=== PATIENT | female | born 1990 | race Caucasian/White ===

== ENCOUNTER 2017-05-08 12:43 | Emergency (ER) | payer OTHER ==
[~2017-05-08] VITALS: Ht 162.6 cm; Wt 89.0 kg
[~2017-05-08 12:43] MED LIST: IBUP400T22 PO
[2017-05-08 13:00] VITALS: Ht 162.6 cm; Wt 89.0 kg
--- NOTE | 2017-05-08 14:27 | ERD ---
ER Documentation Chief Complaint Date/Time DATE: 05/08/17 TIME: 14:22 Chief Complaint bee sting yesterday, today on and off sob said, speaking in full sentences HPI This 26-year-old female was stung in the right anterior calf area yesterday. She has some redness surrounding the site and some pain when she moves her leg. Also she is noted that she has been on and off short of breath. She is not short of breath right now. She has not noticed any wheezing. She was stung by a bee a couple years ago as well and had some swelling at the site. She has had no fever or chills. She has no history of asthma. ROS All systems reviewed and are negative except as per history of present illness. Medications Home Meds Active Scripts Ibuprofen* (Motrin*) 400 Mg Tab, 400 MG PO Q6, #30 TAB 0 Refills Prov:TAMEKA KOWALSKI PA-C 03/22/16 Allergies Allergies: Coded Allergies: No Known Allergy (Verified Allergy, Unknown, 01/29/07) PMhx/Soc Medical and Surgical Hx: pt denies Surgical Hx History of Surgery: No Anesthesia Reaction: No Hx Neurological Disorder: No Hx Respiratory Disorders: No Hx Cardiac Disorders: No Hx Psychiatric Problems: No Hx Miscellaneous Medical Probl: No Hx Alcohol Use: No Hx Substance Use: No Hx Tobacco Use: No Smoking Status: Never smoker Physical Exam Vitals Vital Signs Date Time Temp Pulse Resp B/P Pulse Ox O2 Delivery O2 Flow Rate FiO2 05/08/17 13:00 98.1 84 18 122/74 99 Physical Exam Const: [] No distress Eyes: Normal Conjunctiva ENT: Normal External Ears, Nose and Mouth. Neck: Full range of motion..~ No meningismus. Resp: Clear to auscultation bilaterally Cardio: Regular rate and rhythm, no murmurs Ext: No cyanosis, or edema. Erythema with surrounding calor around a very tiny raised area in the right upper anterior leg approximately 6 cm below the knee. Surrounding erythema is approximately a 5 cm radius Results 24 hrs Current Medications Medications (Trade) Dose Ordered Sig/Francisco Route PRN Reason Start Time Stop Time Status Last Admin Dose Admin Prednisone (Prednisone) 60 mg ONCE ONCE PO 05/08/17 14:30 05/08/17 14:31 05/08/17 14:16 Famotidine (Pepcid) 20 mg ONCE ONCE PO 05/08/17 14:30 05/08/17 14:31 05/08/17 14:16 Procedures/MDM 26-year-old female with bee sting. This is her second sting and she may become sensitized to it. I hear no wheezing she has no respiratory issues right now. They believe she needs to be treated as if this was a serious resolving allergic reaction. I also have a concern for cellulitis at the puncture site. Going to discharge her with Keflex as well as Benadryl and prednisone. She was given prednisone pill in the emergency room. She is currently driving some I can give her Benadryl. She was also given 20 mg Pepcid. Primary care follow- up in the next 2-3 days and return precautions to the ER for any spreading infection or return of shortness of breath. Departure Diagnosis: Primary Impression: Bee sting Additional Impression: Cellulitis Condition: Stable PHUONG HAMMOND DO May 08, 2017 14:27
[2017-05-08] MEDS ORDERED: predniSONE 20 MG TAB PO ONE (14:30)
[2017-05-08] MEDS ORDERED: FAMOTIDINE 20 MG TAB PO ONE (14:30)
[2017-05-08] MEDS ORDERED: PRED20TA PO (14:31)
[2017-05-08] MEDS ORDERED: ALBU18HF INHALATION (14:31)
[2017-05-08] MEDS ORDERED: BEN25 PO (14:31)
== END 2017-05-08 16:00 | disposition home or self-care (01) ==
LOC: FTE 12:43
DX: T63.441A Toxic effect of venom of bees, accidental (unintentional), initial encounter (principal); L03.115 Cellulitis of right lower limb
CPT/HCPCS: J7512; Z7502; Z7610; 99284

== ENCOUNTER 2018-06-29 22:56 | Emergency (ER) | END 2018-06-30 01:31 | disposition home or self-care (01) ==

== ENCOUNTER 2019-06-19 20:23 | Emergency (ER) | payer MEDICAID, OTHER ==
[~2019-06-19] VITALS: Ht 170.2 cm; Wt 91.5 kg
[~2019-06-19 20:23] MED LIST changes: +ALBU18HF INHALATION; +BEN25 PO; +BUTA1CAP38 PO; +HYDR-4011 PO; +IBUP-1542 PO; +IBUP-1561 PO; -IBUP400T22 PO; +ONDA4TAB14 PO; +PRED20TA PO
[2019-06-19 20:28] VITALS: Ht 170.2 cm; Wt 91.5 kg
[2019-06-19] MEDS ORDERED: KETOROLAC 30 MG INJ IV STA (21:05)
[2019-06-19] MEDS ORDERED: METOCLOPRAMIDE 10 MG INJ IV STA (21:05)
--- NOTE | 2019-06-19 21:15 | ERD ---
ER Documentation Chief Complaint Chief Complaint dizzy & L sided SINHA x 2 days; on her period now HPI 28-year-old female with no reported past medical surgical history presents with complaint of headache and dizziness. Patient is has a history of chronic headache. States symptoms been ongoing over the past 2 days with associated pressure behind left eye. She otherwise denies photophobia, neck stiffness, recent fall or injury, chest pain, ear pain, URI type symptoms. Patient has not taken any medications for her symptoms. ROS All systems reviewed and are negative except as per history of present illness. Medications Home Meds Active Scripts Ibuprofen* (Motrin*) 600 Mg Tab, 600 MG PO Q6, #30 TAB Prov:DOMINGUEZ GALAN-C 06/19/19 Ondansetron (Ondansetron Odt) 4 Mg Tab.rapdis, 4 MG PO Q6H PRN for NAUSEA AND/OR VOMITING, #10 TAB Prov:DOMINGUEZ GALAN-C 06/19/19 Wnhvzgfulw-Beracaspwfcbt-Aycwlcdq* (Fioricet*) 50-300-40 Mg Capsule, 1 CAP PO Q4H PRN for HEADACHE for 7 Days, CAP Prov:DOMINGUEZ GALAN-C 06/19/19 Diphenhydramine Hcl* (Benadryl*) 25 Mg Cap, 25 MG PO Q6, #30 CAP Prov:DOMINGUEZ GALAN-C 06/19/19 Hydrocodone/Acetaminophen ([place] 5-325 Tablet) 1 Each Tablet, 1 TAB PO Q6H PRN for SEVERE PAIN LEVEL 7-10, #20 TAB Prov:SUSAN TERRY NP 06/30/18 Ibuprofen* (Motrin*) 600 Mg Tab, 600 MG PO Q6H PRN for PAIN AND OR ELEVATED TEMP, #30 TAB Prov:SUSAN TERRY NP 06/30/18 Albuterol Sulfate* (Ventolin HFA*) 18 Gm Hfa.aer.ad, 2 PUFF INHALATION Q4H, #1 INHALER Prov:PHUONG HAMMOND DO 05/08/17 Prednisone* (Prednisone*) 20 Mg Tab, 40 MG PO DAILY for 4 Days, TAB Prov:PHUONG HAMMOND DO 05/08/17 Diphenhydramine Hcl* (Benadryl*) 25 Mg Cap, 25 MG PO Q6, #30 CAP Prov:PHUONG HAMMOND DO 05/08/17 Ibuprofen* (Motrin*) 400 Mg Tab, 400 MG PO Q6, #30 TAB 0 Refills Prov:TAMEKA KOWALSKI PA-C 03/22/16 Allergies Allergies: Coded Allergies: No Known Allergy (Verified , 01/29/07) PMhx/Soc Medical and Surgical Hx: pt denies Medical Hx, pt denies Surgical Hx History of Surgery: No Anesthesia Reaction: No Hx Neurological Disorder: No Hx Respiratory Disorders: No Hx Cardiac Disorders: No Hx Psychiatric Problems: No Hx Miscellaneous Medical Probl: No Hx Alcohol Use: No Hx Substance Use: No Hx Tobacco Use: No Smoking Status: Never smoker FmHx Family History: No diabetes, No coronary disease, No other Physical Exam Vitals Vital Signs Date Temp Pulse Resp B/P (MAP) Pulse Ox O2 O2 Flow FiO2 Time Delivery Rate 06/19/19 98.7 81 18 122/79 100 20:28 (93) Physical Exam I have reviewed the triage vital signs. Const: Well nourished, well developed, appears stated age Eyes: PERRL, no conjunctival injection HENT: NCAT, Neck supple without meningismus CV: RRR, Warm, well-perfused extremities RESP: CTAB, Unlabored respiratory effort GI: soft, non-tender, non-distended, no masses MSK: No gross deformities appreciated Skin: Warm, dry. No rashes Neuro: grossly non focal Psych: Appropriate mood and affect. Results 24 hrs Laboratory Tests Test 06/19/19 21:30 POC Beta HCG, Qualitative NEGATIVE Current Medications Medications Dose Sig/Francisco Start Time Status Last (Trade) Ordered Route PRN Stop Time Admin Dose Reason Admin 10 mg ONCE STAT 06/19/19 DC Metoclopramid IV 21:05 e HCl 06/19/19 21:11 (Reglan) Ketorolac 30 mg ONCE STAT 06/19/19 DC Tromethamine IV 21:05 (Toradol) 06/19/19 21:11 25 mg ONCE ONCE 06/19/19 DC Diphenhydrami IV 21:30 ne HCl 06/19/19 21:31 (Benadryl) Procedures/MDM This patient presents with a headache most consistent with primary type migraine headache. Differential diagnosis includes migraine versus tension type headache. No headache red flags. Neurologic exam without evidence of meningismus, focal neurologic findings. Presentation not consistent with acute intracranial bleed to include SAH (lack of risk factors, headache history). Presentation not consistent with acute [employer] infection to include meningitis or brain abscess, Temporal arteritis unlikely, as is acute angle closure glaucoma given history and physical findings. Presentation not consistent with other acute, emergent causes of headache at this time. Plan to treat symptomatically with pain medication. No indication for imaging/LP at this time. Plan: Migraine cocktail, will discharge with appropriate Rx, improved with Rx in ED DISPOSITION PLAN: We discussed follow up with the patient's primary care doctor within 24 to 48 hours. Patient counseled regarding my diagnostic impression and care plan. Prior to discharge all questions answered. Pt agrees with treatment plan and understands strict return precautions. Precautionary instructions provided including instructions to return to the ER if not improving or for any worsening or changing symptoms or concerns. Disclaimer: Inadvertent spelling and grammatical errors are likely due to EHR /dictation software use and do not reflect on the overall quality of patient care. Also, please note that the electronic time recorded on this note does not necessarily reflect the actual time of the patient encounter. Departure Diagnosis: Primary Impression: Head ache Condition: Stable Patient Instructions: Self-Care for Headaches Referrals: [facility] CLINICS YOU HAVE RECEIVED A MEDICAL SCREENING EXAM AND THE RESULTS INDICATE THAT YOU DO NOT HAVE A CONDITION THAT REQUIRES URGENT TREATMENT IN THE EMERGENCY DEPARTMENT. FURTHER EVALUATION AND TREATMENT OF YOUR CONDITION CAN WAIT UNTIL YOU ARE SEEN IN YOUR DOCTORS OFFICE WITHIN THE NEXT 1-2 DAYS. IT IS YOUR RESPONSIBILITY TO MAKE AN APPOINTMENT FOR FOLOW-UP CARE. IF YOU HAVE A PRIMARY DOCTOR --you should call your primary doctor and schedule an appointment IF YOU DO NOT HAVE A PRIMARY DOCTOR YOU CAN CALL OUR PHYSICIAN REFERRAL HOTLINE AT IF YOU CAN NOT AFFORD TO SEE A PHYSICIAN YOU CAN CHOSE FROM THE FOLLOWING [facility] CLINICS [facility] [id number] [facility] [address] [facility] [address] [facility] [address] [place] [address] [facility] [address] Additional Instructions: Call your primary care doctor TOMORROW for an appointment during the next 2-3 days.See the doctor sooner or return here if your condition worsens before your appointment time. DOMINGUEZ GALAN PA-C Jun 19, 2019 21:15
[2019-06-19] MEDS ORDERED: DIPHENHYDRAMINE 50 MG INJ IV ONE (21:30)
[2019-06-19 22:17] VITALS: BP 113/75; PULSE 73; RESP 6
== END 2019-06-19 22:32 | disposition home or self-care (01) ==
LOC: FTE 20:23
DX: R51 Headache (principal)
CPT/HCPCS: 81025; J1200; J1885; J2765; 96374; 96375